=== PATIENT | male | born 1945 | race Caucasian/White ===

== ENCOUNTER 2018-10-14 19:54 | Emergency (ER) ==
[2018-10-14 20:03] VITALS: TEMP 98.6; BMI 31.6
[2018-10-14] MEDS ORDERED: XOPENEX 1.25 MG NEB STA (20:06)
[2018-10-14] MEDS ORDERED: SOLU-MEDROL 125 MG IVP STA (20:06)
[2018-10-14] MEDS ORDERED: ROCEPHIN 1 GM in SODIUM CHLORIDE 50 ML IV STA (20:06)
[2018-10-14] MEDS ORDERED: DUONEB NEB STA (20:06)
[2018-10-14] MEDS ORDERED: ROCEPHIN ONE (20:32)
[2018-10-14 20:41] VITALS: BP 160/99
--- NOTE | 2018-10-14 21:04 | CT ---
EXAM: CT chest without contrast HISTORY: Cough, dyspnea, short of breath COMPARISON: None TECHNIQUE: Serial axial images of the chest were obtained from the lung apices to the upper abdomen without contrast. Axial scans acquired 5 mm slice thicknesses. Coronal and sagittal sequence comple rosa FINDINGS: There is no supraclavicular axillary adenopathy. There is no mediastinal or hilar adenopathy seen wi thin limitations of a noncontrast CT. There is mild aneurysm of the ascending aorta 4.3 cm diameter compared descending aorta 3.4 cm. Multiple coronary calcifications are seen. No cardiac chamber enl argement is identified. There is no pericardial or pleural effusion. There is no obstruction of the trachea or central bronchi. There is centrilobular emphysema. Atelectasis lingular lobe. Right lung . There is a noncalcified 5.9 mm nodule right upper lobe. There are calcified 3.0 mm nod ules right lower lobe. Left lung. There is a 7.3 mm noncalcified nodule or ground-glass opacity lingular lobe There is no adrenal enlargement. Multiple gallstones are seen. No biliary duct dilatation. Skeletal structures. There is no osteolytic or blastic lesion involving bone. Impression 1. Multiple coronary artery calcifications. No cardiac chamber enlargement. Aneurysm of the ascend ing aorta measuring 4.3 cm. 2. Centrilobular emphysema. 3. Lingular lobe atelectasis without definite pulmonary consolidation or pneumonia. 4. There is a 5.9 mm noncalcified nodule right upper lobe and a noncalcified 7.3-mm nodule ground-gl ass opacity lingular lobe. Follow up CT in 6 to 12 months suggested to further assess. 5. Multiple gallstones/cholelithiasis. No biliary duct dilatation seen.
[2018-10-14] MEDS ORDERED: ALBUTEROL 0.042% NEB NEB STA (21:14)
--- NOTE | 2018-10-14 22:05 | ED.PDOC ---
General ED Provider: Dr. JESICA GARCIA-ER Chief Complaint: Respiratory Complaint Stated Complaint: my copd is acting up Time Seen by Physician: 19:55 Mode of Arrival: Walk-In Information Source: Patient, Family Exam Limitations: No limitations Nursing and Triage Documentation Reviewed and Agree: Yes Does patient meet sepsis criteria?: No System Inflammatory Response Syndrome: Not Applicable Sepsis Protocol: For patient's 13 years and over: Temp is 96.8 and below OR 101 and greater Pulse >90 BPM Resp >20/minute Acutely Altered Mental Status Are patient's symptoms suggestive of a new infection, such as: -Pneumonia -Skin, Soft Tissue -Endocarditis -UTI -Bone, Joint Infection -Implantable Device -Acute Abdominal Infection -Wound Infection -Meningitis -Blood Stream Catheter Infection -Unknown Respiratory Complaint Exam - Respiratory Complaint/Exam Onset/Duration: 3 days Symptoms Are: Still present Timing: Constant Initial Severity: Mild Current Severity: Mild Character: Reports: Non-productive cough Aggravating: Reports: URI Associated Signs and Symptoms: Reports: Rapid breathing, Dyspnea, Wheezing History of Healthcare-Acquired Pneumonia: No Home Oxygen Use: No Recent Stress Test: No Recent Echo/LV Function: No Current Antibiotic Use: No Current Asthma Medication Use: No Respiratory Distress: None Inadequate Respiratory Effort: No Dysphagia Present: No Stridor Present: No JVD Present: No Accessory Muscle Use: No Retractions: Not Present Diminished Breath Sounds: Yes Sinus Tenderness: None Grunting Respirations: No Kussmaul Respirations: No Differential Diagnoses: COPD Exacerbation Review of Systems - Review Of Systems Constitutional: Reports: No symptoms Eyes: Reports: No symptoms Ears, Nose, Mouth, Throat: Reports: No symptoms Respiratory: Reports: Cough, Short of air, Wheezing Cardiac: Reports: No symptoms GI: Reports: No symptoms : Reports: No symptoms Musculoskeletal: Reports: No symptoms Skin: Reports: No symptoms Neurological: Reports: No symptoms Endocrine: Reports: No symptoms Hematologic/Lymphatic: Reports: No symptoms All Other Systems: Reviewed and Negative Past Medical History - Past Medical History Previously Healthy: No Endocrine: Reports: Other Cardiovascular: Reports: Hypertension Respiratory: Reports: COPD Hematological: Reports: Unknown Gastrointestinal: Reports: Unknown Genitourinary: Reports: CKD Neuro/Psych: Reports: Other Musculoskeletal: Reports: Unknown Cancer: Reports: Unknown - Surgical History General Surgical History: Reports: Unknown - Family History Family History: Reports: Unknown - Social History Smoking Status: Former smoker Hx Substance Use: No Alcohol Screening: None Physical Exam - Physical Exam Appearance: Well-appearing, No pain distress, Well-nourished Eyes: CONOR, EOMI, Conjunctiva clear ENT: Ears normal, Nose normal, Oropharynx normal Neck: Supple Respiratory: Wheezes Cardiovascular: RRR, Pulses normal, No rub, No murmur GI/: Soft, Nontender, No masses, Bowel sounds normal, No Organomegaly Musculoskeletal: Normal strength Skin: Warm Neurological: Sensation intact Psychiatric: Affect appropriate, Mood appropriate Interpretation - Radiology Interpretation Radiology Interpretation By: Radiologist Radiology Results: Positive - EKG Interpretation Time of EKG #1: 22:05 Rate: Tachy Rhythm: Sinus Ectopy: None Stanton: NL ST Segment: Normal Interpretation: sinus tachy Re-Evaluation - Re-Evaluation Time of Re-Evaluation: 22:05 Status: Improved (oxygen sat 94---no wheezing) Vital Signs Stable: Yes Pain Level: 0 Appearance: NAD Lungs: Clear Skin: Warm and Dry Neuro: Alert and Oriented X3 CV: RRR Critical Care Note - Critical Care Note Total Time (mins): 0 Course - Course Hematology/Chemistry: 10/14/18 20:45 10/14/18 20:45 Orders, Labs, Meds: Lab Review 10/14/18 10/14/18 10/14/18 20:43 20:45 20:45 WBC 7.47 RBC 5.00 Hgb 13.5 L Hct 41.9 L MCV 83.8 MCH 27.0 MCHC 32.2 RDW Coeff of Cadence 16.9 H Plt Count 239 Immature Gran % (Auto) 0.4 Neut % (Auto) 53.7 Lymph % (Auto) 21.2 Hamblen % (Auto) 10.8 H Eos % (Auto) 13.0 H Baso % (Auto) 0.9 Immature Gran # (Auto) 0.0 Neut # (Auto) 4.0 Lymph # (Auto) 1.6 Hamblen # (Auto) 0.8 Eos # (Auto) 1.0 H Baso # (Auto) 0.1 Sodium 137.2 Potassium 4.52 Chloride 101.8 Carbon Dioxide 25.4 Anion Gap 14.52 BUN 25.2 H Creatinine 2.38 H Estimated GFR (MDRD) 27.00 BUN/Creatinine Ratio 10.58 Glucose 119.2 H Calcium 9.13 Total Bilirubin 0.56 AST 22.5 ALT 18.6 Alkaline Phosphatase 95.8 NT-Pro-B Natriuret Pep 94.100 Total Protein 6.71 Albumin 3.87 Globulin 2.84 Albumin/Globulin Ratio 1.36 Influ A Molecular Assay Negative by naat Influ B Molecular Assay Negative by naat Orders Category Date Time Status ABG DRAW REQUEST Stat CARDIO 10/14/18 20:05 Completed EKG-(ED ONLY) Stat CARDIO 10/14/18 20:05 Completed NEBULIZER TREATMENT Stat CARDIO 10/14/18 20:06 Completed NEBULIZER TREATMENT Stat CARDIO 10/14/18 21:14 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 .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 10/14/18 20:05 Active ED IV/MEDIPORT/POWERPORT .ONCE EMERGENCY 10/14/18 20:05 Active ABG Stat LAB 10/14/18 20:05 Received CBC W/ AUTO DIFF Stat LAB 10/14/18 20:45 Completed COMPREHENSIVE METABOLIC PANEL Stat LAB 10/14/18 20:45 Completed FLU A/B MOLECULAR Stat LAB 10/14/18 20:43 Completed NT-PROBNP Stat LAB 10/14/18 20:45 Completed 0.9 % Sodium Chloride [Saline Flush] MEDS 10/14/18 20:05 Ordered 1 syr IVF PRN PRN Albuterol Sulfate 0.042% Neb [Albuterol 0.042% Neb] MEDS 10/14/18 21:14 Discontinued 1 vial NEB ONCE STA Ceftriaxone Sodium [Rocephin] 1 gm MEDS 10/14/18 20:06 Discontinued 0.9 % Sodium Chloride [Sodium Chloride] 50 ml IV ONCE Ipratropium/Albuterol Neb [Duoneb] MEDS 10/14/18 20:06 Discontinued 1 vial NEB ONCE STA Levalbuterol HCl [Xopenex 1.25 mg] MEDS 10/14/18 20:06 Discontinued 1 vial NEB ONCE STA Methylprednisolone Sod Succ/Pf [Solu-Medrol 125 mg] MEDS 10/14/18 20:06 Discontinued 125 [address] IVP ONCE STA CT CHEST W/O CONTRAST Stat RADS 10/14/18 20:05 Completed Medications Generic Name Dose Route Start Last Admin Trade Name Freq PRN Reason Stop Dose Admin Sodium Chloride 1 syr 10/14/18 20:05 10/14/18 20:54 Saline Flush IVF 1 syr PRN PRN Administration To flush IV Discontinued Medications Generic Name Dose Route Start Last Admin Trade Name Hossein PRN Reason Stop Dose Admin Albuterol Sulfate 1 vial 10/14/18 21:14 Albuterol 0.042% Neb [facility] 10/14/18 21:15 ONCE STA Albuterol/Ipratropium 1 vial 10/14/18 20:06 Duoneb NEB 10/14/18 20:07 ONCE STA Ceftriaxone Sodium 1 gm/ 50 mls @ 75 mls/hr 10/14/18 20:06 10/14/18 20:55 Sodium Chloride IV 10/14/18 20:45 75 mls/hr ONCE STA Administration Levalbuterol HCl 1 vial 10/14/18 20:06 Xopenex 1.25 Mg NEB 10/14/18 20:07 ONCE STA Methylprednisolone Sodium Succinate 125 mg 10/14/18 20:06 10/14/18 20:54 Solu-Medrol 125 Mg IVP 10/14/18 20:07 125 mg ONCE STA Administration Vital Signs: Temp Pulse Resp BP Pulse Ox 10/14/18 20:40 111 H 21 160/99 H 97 10/14/18 19:56 98.6 F 116 H 22 181/96 H 93 L Departure - Departure Time of Disposition: 22:06 Disposition: HOME SELF-CARE Discharge Problem: COPD exacerbation Aneurysm, aorta, thoracic Qualifiers: Presence of rupture: without rupture Qualified Code(s): I71.2 - Thoracic aortic aneurysm, without rupture Instructions: COPD (Chronic Obstructive Pulmonary Disease) (ED), Chronic Kidney Disease (ED) Condition: Good Pt referred to PMD for follow-up: Yes IPMP verified?: No Additional Instructions: omnicef 300mg bid x 7 days--prednisione 30mg x 2 days then 20mg x 3 days then 10mg x 3 days--f/u with dr garner--f/u with dr garner regarding lung nodules-- talk to dr garner about aneursym and renal function Disposition Discussed With: Patient, Family
== END 2018-10-14 22:15 | disposition home or self-care (01) ==
LOC: ED 19:54
DX: J44.1 Chronic obstructive pulmonary disease with (acute) exacerbation (principal); I71.2 Thoracic aortic aneurysm, without rupture; I10 Essential (primary) hypertension; N18.9 Chronic kidney disease, unspecified; R91.8 Other nonspecific abnormal finding of lung field
CPT/HCPCS: 36415; 80053; 82803; 83880; 85025; 87502; 93005; 93010; 94640; 96365; 96372; 99284; 99285